=== PATIENT | female | born 1995 | race Caucasian/White ===

== ENCOUNTER 2018-08-09 14:03 | Emergency (ER) | payer BC, OTHER ==
--- NOTE | 2018-08-09 14:19 | EDM.PDOC ---
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 Pt is a student an was healthy throughout her life. NoN/V/D or dizziness or any other acute medical issues. Pt denies a possibility to be . BP 135/85 RR 18 Pulse ox 98% on RA Temp 36.8 Pulse 88 Onset Date: 08/09/18 Onset Time: 13:00 Duration: Minutes:, Hour(s): Location: Reports: Neck Quality: Reports: Dull Severity: Mild Improves with: Reports: Rest Worsens with: Reports: Movement Context: Reports: Trauma (fell on neck, no LOC) Associated Symptoms: Reports: No Other Symptoms neck/upper back Pain Score (Numeric/FACES): 5 - Related Data Allergies Allergy/AdvReac Type Severity Reaction Status Date / Time minocycline Allergy Rash Verified 08/09/18 14:55 Home Meds: Home Meds Montelukast Sodium [Singulair] 10 mg PO DAILY 08/09/18 [History] Review of Systems - Review of Systems Review Of Systems: See Below Constitutional: Reports: No Symptoms Eyes: Reports: No Symptoms Ears: Reports: No Symptoms Nose: Reports: No Symptoms Mouth/Throat: Reports: No Symptoms Respiratory: Reports: No Symptoms Cardiovascular: Reports: No Symptoms GI/Abdominal: Reports: No Symptoms Genitourinary: Reports: No Symptoms Musculoskeletal: Reports: Neck Pain Skin: Reports: No Symptoms Neurological: Reports: No Symptoms Psychiatric: Reports: No Symptoms ED EXAM, GENERAL - Physical Exam Exam: See Below Exam Limited By: No Limitations General Appearance: Alert, WD/WN, Mild Distress Eye Exam: Bilateral Eye: Normal Inspection Ears: Normal External Exam Ear Exam: Bilateral Ear: Auricle Normal Nose: Normal Inspection, Normal Mucosa, No Blood Throat/Mouth: Normal Inspection, Normal Lips, Normal Teeth, Normal Gums, Normal Voice, No Airway Compromise Head: Atraumatic, Normocephalic Neck: Normal Inspection, Supple, Full Range of Motion, Tender Midline Respiratory/Chest: No Respiratory Distress, Lungs Clear, Normal Breath Sounds, Chest Non-Tender Cardiovascular: Normal Peripheral Pulses, Regular Rate, Rhythm, No Edema, No Gallop, No JVD, No Murmur Peripheral Pulses: 1+: Brachial (R) GI/Abdominal: Normal Bowel Sounds, Soft, Non-Tender, No Distention, No Abnormal Bruit (Female) Exam: Deferred Rectal (Female) Exam: Deferred Back Exam: Normal Inspection, Full Range of Motion Extremities: Normal Inspection, Normal Range of Motion, Non-Tender, No Pedal Edema Neurological: Alert, Oriented, CN II-XII Intact, Normal Cognition, Normal Gait, No Motor/Sensory Deficits Psychiatric: Normal Affect, Normal Mood Skin Exam: Warm, Dry, Intact, Normal Color, No Rash Lymphatic: No Adenopathy Course - Vital Signs Text/Narrative:: 23 years old w f come to the 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 Pt is a student an was healthy throughout her life. NoN/V/D or dizziness or any other acute medical issues. Pt denies a possibility to be . BP 135/85 RR 18 Pulse ox 98% on RA Temp 36.8 Pulse 88 PE: WNWD W F with discomfort mid lower neck. Imaging: C Spine: NAD Impression: Neck sprain after a fall Tx: ICE to neck, Motrin was taken PHYSICAL EDUCATION SPECIALIST Reexam: Improved Plan: D/C with instructions Last Recorded V/S: Last Vital Signs Temp 36.9 C 08/09/18 14:15 Pulse 74 08/09/18 15:00 Resp 16 08/09/18 15:00 BP 121/70 08/09/18 15:00 Pulse Ox 100 08/09/18 15:00 - Orders/Labs/Meds Orders: Active Orders 24 hr Category Date Time Status Cooling Warming Measures [RC] ASDIRECTED Care 08/09/18 14:13 Active Cervical Spine 2V or 3V [CR] Stat Exams 08/09/18 14:13 Taken Ice Therapy [OM.PC] Routine Oth 08/09/18 14:13 Ordered Departure - Departure Time of Disposition: 15:16 Disposition: Home, Self-Care 01 Condition: Good Clinical Impression: Acute neck sprain Qualifiers: Encounter type: initial encounter Qualified Code(s): S13.9XXA - Sprain of joints and ligaments of unspecified parts of neck, initial encounter - Discharge Information Instructions: Cervical Strain and Sprain Rehab-SportsMed, Cervical Sprain, Easy -to-Read Referrals: PCP,Not In Area [Primary Care Provider] - Forms: ED Department Discharge, ED Return to Work/School Form Additional Instructions: Please apply ice to neck, take Motrin 600 mg every 8 hours for next 3 days, after 3 days take Motrin as needed for pain. Please follow up with Urgent care in next 2-3 days, come back if your symptoms get worse acutely. - My Orders Last 24 Hours: My Active Orders 08/09/18 14:13 Cooling Warming Measures [RC] ASDIRECTED Cervical Spine 2V or 3V [CR] Stat Ice Therapy [OM.PC] Routine - Assessment/Plan Last 24 Hours: My Active Orders 08/09/18 14:13 Cooling Warming Measures [RC] ASDIRECTED Cervical Spine 2V or 3V [CR] Stat Ice Therapy [OM.PC] Routine
== END 2018-08-09 15:20 | disposition home or self-care (01) ==
LOC: FB.ED 14:03
DX: S13.9XXA Sprain of joints and ligaments of unspecified parts of neck, initial encounter (principal); Z88.1 Allergy status to other antibiotic agents; W18.30XA Fall on same level, unspecified, initial encounter
CPT/HCPCS: 72040; 99283